=== PATIENT | male | born 1965 | race Hispanic/Latino ===

== ENCOUNTER → 2020-06-06 | Outpatient (CLI) | payer OTHER ==
[~2020-06-06] MED LIST: ADV500 IH; ALBU90AE IH; ATOR40TA71 PO; DULO60CA64 PO; GABA300C PO; METF-444 PO
== END | disposition home or self-care (01) ==
LOC: RAH 15:33
PROVIDERS: ATTEND Physical Medicine & Rehabilitation
DX: M75.101 Unspecified rotator cuff tear or rupture of right shoulder, not specified as traumatic (principal)
CPT/HCPCS: 73221

== ENCOUNTER 2020-08-24 07:46 | Day surgery (SDC) | payer OTHER ==
[2020-08-16 11:24] LABS: BASOPHILS % (AUTO) 1.2 % (0.0-5.0); EOSINOPHILS % (AUTO) 10.8 % (0.0-8.0); HEMATOCRIT 50.7 % (42-54); LYMPHOCYTES % (AUTO) 16.9 % (21.0-51.0); MEAN CORPUSCULAR HEMOGLOBIN 32.5 pg (27.0-33.0); MEAN CORPUSCULAR HGB CONC 34.5 g/dL (32.0-36.0); MEAN CORPUSCULAR VOLUME 94.2 fL (79-99); NEUTROPHILS % (AUTO) 64.5 % (40.0-77.0); PLATELET COUNT (AUTO) 224 K/uL (130-400); RED BLOOD CELL COUNT(AUTO) 5.38 MIL/uL (4.50-6.20); RED CELL DISTRIBUTION WIDTH 12.5 % (11.0-15.5); WHITE BLOOD COUNT (AUTO) 12.2 K/uL (4.8-10.8)
[2020-08-21] MEDS: CEFAZOLIN SODIUM 1 GM VIAL IVP SCH (08:15)
--- NOTE | 2020-08-23 11:44 | NUR ---
faxed lab result of wbc 12.2, spoke to Saira from [facility] office , will have md review if any orders they will send orders.
[2020-08-24] VITALS (17 sets, daily range): BP systolic 113–151; BP diastolic 71–98
[~2020-08-24] VITALS: Ht 166.4 cm; Wt 98.2 kg
[2020-08-24] MEDS ORDERED: SODIUM CHLORIDE 0.9% 1000ML 1,000 ML IV ONE (08:40)
[2020-08-24] MEDS ORDERED: SUCCINYLCHOLINE CHLORIDE 20 MG/ML 10 ML VIAL ONE ×2 (12:40→12:44)
[2020-08-24] MEDS ORDERED: LIDOCAINE PF 2% 5ML ABBOJECT ONE ×2 (12:40→12:42)
[2020-08-24] MEDS: CEFAZOLIN SODIUM 1 GM VIAL IVP SCH (12:40)
[2020-08-24] MEDS ORDERED: GLYCOPYRROLATE 1 MG/5 ML SYRINGE ONE (12:41)
[2020-08-24] MEDS ORDERED: PROPOFOL 10 MG/ML 20ML VIAL IV ONE (12:41)
[2020-08-24] MEDS ORDERED: ROCURONIUM 10MG/1ML SYR 10 MG/ML ML ONE (12:41)
[2020-08-24] MEDS ORDERED: NEOSTIGMINE 5MG/5ML SYR IV ONE (12:41)
[2020-08-24] MEDS ORDERED: FENTANYL CITRATE PF 50 MCG/1 ML 2ML VIAL ONE (12:41)
[2020-08-24] MEDS ORDERED: MIDAZOLAM HCL 1 MG/ML 2ML VIAL ONE (12:41)
[2020-08-24] MEDS ORDERED: ALBUTEROL INHALER 90MCG/INH IH ONE (12:45)
[2020-08-24] MEDS ORDERED: ONDANSETRON HCL 4 MG/2 ML VIAL ONE (14:09)
[2020-08-24] MEDS ORDERED: MEPERIDINE-PF 25 MG/ML SYG ONE ×2 (14:53→15:07)
--- NOTE | 2020-08-24 15:35 | NUR ---
PATIENT ARRIVED TO DAY PATIENT VIA STRETCHER BY FREDA MICHELLE. PATIENT [id number], RESPIRATIONS UNLABORED, VITAL SIGNS STABLE, DENIES ANY PAIN AT THIS TIME. DRESSING TO RIGHT SHOULDER IS DRY/INTACT, SLING IN PLACE.
--- NOTE | 2020-08-24 16:20 | NUR ---
PATIENT DISCHARGED FROM FACILITY VIA WHEELCHAIR AND ASSISTED INTO PRIVATE VEHICLE DRIVEN BY SON
== END 2020-08-24 16:20 | disposition home or self-care (01) ==
LOC: DAH 07:46
PROVIDERS: ATTEND Orthopaedic Surgery
DX: M75.111 Incomplete rotator cuff tear or rupture of right shoulder, not specified as traumatic (principal); M75.41 Impingement syndrome of right shoulder; J45.909 Unspecified asthma, uncomplicated; E78.5 Hyperlipidemia, unspecified; E11.9 Type 2 diabetes mellitus without complications; Z20.828 Contact with and (suspected) exposure to other viral communicable diseases; Z79.84 Long term (current) use of oral hypoglycemic drugs; Z79.899 Other long term (current) drug therapy
CPT/HCPCS: 29826; 29827; 36415; 64415; 80048; 82948 ×2; 85025; 93005; A4213; A4215; A4221; A4222; A4223; A4248; A4452; A4565; A4649 ×6; A4663; A4930; A6260; C1713 ×2; C9803; J0330 ×2; J0690; J2001 ×2; J2175 ×2; J2250; J2405; J2704; J2710; J3010; J3490; J7030; J7120; U0003